=== PATIENT | female | born 1955 ===

== ENCOUNTER 2017-11-05 10:50 | Emergency (ER) | payer BC, OTHER ==
[2017-11-05 11:54] LABS: BASO % 0.6 % (0.0-2.0); EOS # 0.1 K/uL (0.0-0.7); EOS % 1.4 % (0.0-4.0); HEMOGLOBIN 12.4 g/dL (11.0-16.0); LYMPH # 1.2 K/uL (1.0-4.3); LYMPH % 26.9 % (20.0-40.0); MEAN CELL VOLUME 86.5 fL (81.0-99.0); MEAN CORPUSCULAR HEMOGLOBIN 30.1 pg (27.0-31.0); MEAN CORPUSCULAR HGB CONC 34.7 g/dL (33.0-37.0); MEAN PLATELET VOLUME 8.5 fL (7.2-11.7); MONO # 0.2 K/uL (0.0-0.8); NEUT # 2.9 K/uL (1.8-7.0); NEUT % 66.1 % (50.0-75.0); NRBC % 0.1 % (0.0-2.0); RBC 4.14 Mil/uL (3.80-5.20); RED CELL DISTRIBUTION WIDTH 13.2 % (11.5-14.5); WHITE BLOOD COUNT 4.4 K/uL (4.8-10.8)
[2017-11-05 12:15] LABS: URINE BILIRUBIN NEGATIVE (NEGATIVE); URINE BLOOD 1+ (NEGATIVE); URINE CLARITY Hazy (Clear); URINE COLOR Colorless (YELLOW); URINE GLUCOSE (UA) NORMAL (Normal); URINE LEUKOCYTE ESTERASE TRACE Leu/uL (Negative); URINE PROTEIN NEGATIVE (NEGATIVE); URINE UROBILINOGEN NORMAL mg/dL (0.2-1.0)
[2017-11-05 12:30] LABS: ALB/GLOB RATIO 1.2 (1.0-2.1); ALBUMIN 4.4 g/dL (3.5-5.0); ALT/SGPT 18 U/L (9-52); AST/SGOT 26 U/L (14-36); BLOOD UREA NITROGEN 12 mg/dL (7-17); GFR AFRICAN-AMERICAN > 60; GFR NON-AFRICAN AMERICAN > 60
[2017-11-05 12:46] LABS: B-TYPE NATRIURETIC PEPTIDE 41.6 pg/mL (0-900)
--- NOTE | 2017-11-05 12:46 | RAD ---
PROCEDURE: CHEST RADIOGRAPH, 1 VIEW HISTORY: SOB COMPARISON: None available. FINDINGS: LUNGS: The lungs are well inflated and clear. PLEURA: No pneumothorax or pleural fluid seen. CARDIOVASCULAR: Normal. OSSEOUS STRUCTURES: No significant abnormalities. VISUALIZED UPPER ABDOMEN: Normal. OTHER FINDINGS: None. IMPRESSION: No active pulmonary disease.
--- NOTE | 2017-11-05 12:46 | CT ---
PROCEDURE: CT HEAD WITHOUT CONTRAST. HISTORY: acute vertigo, positional, ? occipital COMPARISON: None available. TECHNIQUE: Axial computed tomography images were obtained through the head/brain without intravenous contrast. Radiation dose: Total exam DLP = 735.12 mGy-cm. This CT exam was performed using one or more of the following dose reduction techniques: Automated exposure control, adjustment of the mA and/or kV according to patient size, and/or use of iterative reconstruction technique. FINDINGS: HEMORRHAGE: No intracranial hemorrhage. BRAIN: Schumacher-white matter differentiation is preserved. There is no mass, mass effect or abnormal extra-axial fluid collection. There is a small lipoma in the left quadrigeminal plate cistern. There is no territorial infarction. VENTRICLES: The ventricles are normal in size, shape and configuration. CALVARIUM: The skull base and calvarium are normal. PARANASAL SINUSES: Predominantly clear. MASTOID AIR CELLS: Predominantly clear. OTHER FINDINGS: None. IMPRESSION: No acute intracranial abnormality.
[2017-11-05 12:56] VITALS: TEMP 97.8
--- NOTE | 2017-11-05 13:04 | C.PDOC ---
History Of Present Illness 62 year old female presents to the emergency department after waking up and experiencing dizziness. Patient reports that her dizziness is associated with lifting of her head off of the pillow, subsiding when her head is not moving. Patient also reports transient chest discomfort that is radiating to her left arm. Patient denies history of vertigo. Time Seen by Provider: 11/05/17 11:35 Chief Complaint (Nursing): Dizziness/Lightheaded History Per: Patient History/Exam Limitations: no limitations Onset/Duration Of Symptoms: Hrs Activity At Onset Of Symptoms: Change In Head Position (lifting head up off of the pillow) Possible Causative Factor(s): denies: Vertigo Past Medical History Reviewed: Historical Data, Nursing Documentation, Vital Signs Vital Signs: Last Vital Signs Temp 97.8 F 11/05/17 12:55 Pulse 65 11/05/17 12:55 Resp 12 11/05/17 12:55 BP 141/76 11/05/17 12:55 Pulse Ox 98 11/05/17 13:56 - Medical History PMH: HTN Surgical History: No Surg Hx Family History: States: No Known Family Hx - Social History Hx Alcohol Use: No Hx Substance Use: No Review Of Systems Except As Marked, All Systems Reviewed And Found Negative. Cardiovascular: Positive for: Chest Pain (transient chest discomfort) Musculoskeletal: Positive for: Arm Pain (left arm, arriving from her chest), Other (transient chest discomfort radiating to her left arm) Neurological: Positive for: Dizziness Physical Exam - Physical Exam Appears: Well, Non-toxic Skin: Normal Color Head: Atraumatic, Normacephalic Eye(s): bilateral: Normal Inspection Ear(s): Bilateral: Normal Nose: Normal Oral Mucosa: Moist Tongue: Normal Appearing Neck: Other (vertiginous with neck flexion) Cardiovascular: Rhythm Regular Respiratory: Normal Breath Sounds Gastrointestinal/Abdominal: Normal Exam Neurological/Psych: Oriented x3, Normal Speech, Normal Cognition ED Course And Treatment - Laboratory Results Result Diagrams: 11/05/17 11:50 11/05/17 11:50 Lab Interpretation: Normal (ua neg.) ECG: Interpreted By Me ECG Rhythm: Sinus Rhythm ECG Interpretation: Normal Rate From EC O2 Sat by Pulse Oximetry: 98 (RA) Pulse Ox Interpretation: Normal - Radiology CXR: Interpreted by Me CXR Interpretation: Yes: No Acute Disease - CT Scan/US head Ct Other Rad Studies (CT/US): Interpreted By Me Progress Note: meclizine 50 mg PO Reevaluation Time: 13:55 Reassessment Condition: Improved Medical Decision Making Medical Decision Making: Plan: * Head CT W/O Contrast * ECG * BNP, CMP, Troponin * CBC * CXR One-View * Antivert 50mg PO * Urinalysis * IV Medications ? mild BPV, improved with meclizine normal workup and head CT Impression: Head CT: no acute intracranial abnormality CXR: No active pulmonary disease Disposition Doctor Will See Patient In The: Office Counseled Patient/Family Regarding: Studies Performed, Diagnosis - Disposition Referrals: Gina Aleman [Staff Provider] - Disposition: HOME/ ROUTINE Disposition Time: 13:56 Condition: GOOD Additional Instructions: deedee Meclizine 25 mg cada 6 horas simone necessario para los mareos Sigue con Dr. Aleman simone necessario para seguir rehan cuidados. Prescriptions: Meclizine [Meclizine*] 25 mg PO Q6 PRN #30 tab PRN Reason: vertigo Instructions: Vertigo (a Type of Dizziness) (DC) Forms: [employer] (Citizen Of [place]) Print Language: SALV[place]AN - Clinical Impression Clinical Impression: Vertigo - Scribe Statement Kameron Dalton Provider Attestation: All medical record entries made by the Scribe were at my direction and personally dictated by me. I have reviewed the chart and agree that the record accurately reflects my personal performance of the history, physical exam, medical decision making, and the department course for this patient. I have also personally directed, reviewed, and agree with the discharge instructions and disposition.
[2017-11-05 14:20] VITALS: BP 140/73; PULSE 63; RESP 18
[2017-11-05 14:21] VITALS: O2SAT 98
--- NOTE | 2017-11-06 23:23 | CARD ---
APPROVED REPORT EKG Measurement Heart [id number] <Conclusion> Normal sinus rhythm Normal ECG
== END 2017-11-05 14:26 | disposition home or self-care (01) ==
LOC: C.ER 10:50
DX: R42 Dizziness and giddiness (principal); I10 Essential (primary) hypertension